=== PATIENT | male | born 1955 | race Caucasian/White ===

== ENCOUNTER 2017-12-10 06:26 | Day surgery (SDC) | payer BC ==
[2017-12-09 12:11] VITALS: BMI 35.9
--- NOTE | 2017-12-10 01:22 | HP ---
SHORT STAY HISTORY AND PHYSICAL DATE OF ADMISSION: 12/10/2017 HISTORY OF PRESENT ILLNESS: This is a 62-year-old male who comes for colonoscopy for colon cancer screening. The patient has family history of a colon cancer. The patient has no specific GI symptoms. His bowel movements are regular. He has no history of rectal bleeding. ALLERGIES: None. SOCIAL HISTORY: Patient is a former smoker. He drinks alcohol socially. MEDICAL ILLNESSES: 1. Hypertension. 2. Morbid obesity. 3. Hernia repair. 4. Skin biopsy. PHYSICAL EXAMINATION: VITAL SIGNS: Pulse is 70, blood pressure 140/80. HEENT: Conjunctivae clear. CARDIOVASCULAR SYSTEM: First and second heart sounds normal. LUNGS: Clear to auscultation. ABDOMEN: Soft to palpate. No organomegaly. No tenderness. No masses. EXTREMITIES: Reveal no edema. ADMITTING DIAGNOSIS: A 62-year-old male with family history of colon cancer. Son in a colonoscopy.
--- NOTE | 2017-12-10 09:24 | OP ---
DATE OF PROCEDURE: 12/10/2017 SURGEON: Jose Jc M.D. OPERATIVE PROCEDURE: Colonoscopy with biopsy. PREOPERATIVE DIAGNOSES: Colon polyp, family history of colon cancer. He is a high risk for colon ca ncer, undergoing colonoscopy for colon cancer screening. POSTOPERATIVE DIAGNOSES: 1. Sigmoid diverticular disease. 2. Sessile polyps x2, sigmoid colon. 3. Otherwise, the exam is normal. PROCEDURE NOTE: The patient was placed on his left lateral position and was given sedation by Anesth esia Department. A rectal exam was done before the scope was advanced into the rectum. No other les ion felt on rectal exam. A [employer] video colonoscope was introduced into the rectum and advanced all the way to the cecum. The prep was excellent. The mucosa appeared normal throughout the colon. The ileocecal area, cecum, ascending colon, no pathology seen. The hepatic flexure, transverse colon, d escending colon, no pathology seen. The sigmoid colon showed scattered diverticular disease. A sess ile polyp which appears more hyperplastic mucosa seen over the sigmoid colon. Another small sessil e polyp removed by forceps. Rectum showed no pathology. DISCHARGE PLANNING: Mr. Sammy Cardona is a very pleasant 62-year-old male with family hi story of colon cancer. The patient came for a colonoscopy. He underwent colonoscopy with biopsy. DISCHARGE RECOMMENDATIONS: 1. The patient advised to call me if he develops abdominal pain, hematochezia or fever. 2. In the absence of any of the above symptoms, he will come back to me in 2 weeks.
== END 2017-12-10 10:15 | disposition home or self-care (01) ==
LOC: SDC 06:26
PROVIDERS: ATTEND Internal Medicine Gastroenterology
PROC: 0DBN8ZX Excision of Sigmoid Colon, Via Natural or Artificial Opening Endoscopic, Diagnostic (ICD-10-PCS; principal; 2017-12-10)
DX: Z12.11 Encounter for screening for malignant neoplasm of colon (principal); K63.5 Polyp of colon; K63.89 Other specified diseases of intestine; I10 Essential (primary) hypertension; E66.01 Morbid (severe) obesity due to excess calories; K57.10 Diverticulosis of small intestine without perforation or abscess without bleeding; Z80.0 Family history of malignant neoplasm of digestive organs; Z68.35 Body mass index [BMI] 35.0-35.9, adult
CPT/HCPCS: 88305

== ENCOUNTER 2020-11-14 19:00 | Outpatient (CLI) | payer MEDICARE | END 2020-11-14 19:01 | disposition home or self-care (01) | LOC: SLEEPLAB 19:00 | PROVIDERS: ATTEND Family Medicine | DX: G47.33 Obstructive sleep apnea (adult) (pediatric) (principal); R53.83 Other fatigue; R06.83 Snoring; I10 Essential (primary) hypertension; G47.00 Insomnia, unspecified; G47.10 Hypersomnia, unspecified | CPT/HCPCS: 95811 ==

== ENCOUNTER 2021-01-17 19:00 | Outpatient (CLI) | payer MEDICARE | END 2021-01-17 19:01 | disposition home or self-care (01) | LOC: SLEEPLAB 19:00 | PROVIDERS: ATTEND Internal Medicine Critical Care Medicine | DX: G47.33 Obstructive sleep apnea (adult) (pediatric) (principal); R53.83 Other fatigue; R06.83 Snoring; G47.10 Hypersomnia, unspecified; E66.9 Obesity, unspecified; Z68.36 Body mass index [BMI] 36.0-36.9, adult | CPT/HCPCS: 95811 ==

== ENCOUNTER 2021-08-01 07:36 | Outpatient (CLI) | payer MEDICARE | END 2021-08-01 07:37 | disposition home or self-care (01) | LOC: BICCT 07:36 | PROVIDERS: ATTEND Family Medicine | DX: Z12.2 Encounter for screening for malignant neoplasm of respiratory organs (principal); Z87.891 Personal history of nicotine dependence; I25.10 Atherosclerotic heart disease of native coronary artery without angina pectoris | CPT/HCPCS: 71271 ==

== ENCOUNTER 2023-12-29 08:26 | Outpatient (CLI) | payer MEDICARE | END 2023-12-29 08:27 | disposition home or self-care (01) | LOC: CT 08:26 | PROVIDERS: ATTEND Family Medicine | DX: Z12.2 Encounter for screening for malignant neoplasm of respiratory organs (principal); F17.211 Nicotine dependence, cigarettes, in remission; J43.2 Centrilobular emphysema | CPT/HCPCS: 71271 ==